=== PATIENT | male | born 1970 | race Hispanic/Latino ===

== ENCOUNTER 2017-03-31 08:39 | Outpatient (CLI) | payer BC ==
--- NOTE | 2017-03-31 10:02 | CT ---
CT OF RIGHT ELBOW PERFORMED WITHOUT CONTRAST ENHANCEMENT: HISTORY: Right elbow pain, unable to straighten arm. FINDINGS: There are marked arthritic changes of the elbow. There is spurring involving the coronoid and olecra non process. There is also arthritic change of the radiocapitellar joint space. There are some prom inent ossified bodies in the olecranon fossa and directly superior to the coronoid process. Some of these appear to show attachment to the bone. There are no signs of any fracture. No lytic or blasti c bony change. IMPRESSION: Marked arthritic changes of the elbow with ossified bodies seen within the joint space. POS: OZZY
== END 2017-03-31 08:40 | disposition home or self-care (01) ==
LOC: CT 08:39
PROVIDERS: ATTEND Orthopaedic Surgery
DX: M25.521 Pain in right elbow (principal); M19.021 Primary osteoarthritis, right elbow

== ENCOUNTER 2017-04-17 09:10 | Outpatient (CLI) | payer BC ==
[2017-04-17 10:27] LABS: Hematocrit 45.4 % (42.0-52.0); Mean Platelet Volume 7.7 fL (7.4-10.4); Red Blood Cell (RBC) Count 4.83 mill/uL (4.70-6.10); White Blood Cell (WBC) Count 4.5 thou/uL (4.8-10.8)
[2017-04-17 10:31] LABS: Bilirubin Negative (Negative); Blood, Urine Negative (Negative); Glucose, Urine (Dipstick) Negative (Negative); Ketone, Urine Negative (Negative); Nitrite Negative (Negative); Protein, Urine (Dipstick) Negative (Neg-Trace); Urobilinogen 0.2 mg/dL (0.2-1.0)
[2017-04-17 10:33] LABS: Bacteria/HPF None Seen HPF (None Seen); Hyaline Casts/LPF 0-3 HYALINE CAST LPF (0-3 Hyaline); RBC/HPF 0-3 HPF (0-3); Squamous Epithelial None Seen HPF (0-3); WBC/HPF None Seen HPF (0-3)
== END 2017-04-17 09:11 | disposition home or self-care (01) ==
LOC: LABBT 09:10
PROVIDERS: ATTEND Orthopaedic Surgery
DX: Z01.812 Encounter for preprocedural laboratory examination (principal); M19.021 Primary osteoarthritis, right elbow
CPT/HCPCS: 81001; 85027

== ENCOUNTER 2017-04-20 05:43 | Day surgery (SDC) | payer BC ==
[2017-04-17 09:47] VITALS: BMI 28.8
[2017-04-20] MEDS ORDERED: CEFAZOLIN/Water 2 GM/20 ML SYRINGE ONE (06:34)
[2017-04-20] MEDS ORDERED: Bupivacaine/Epinephrine 0.25% 30 ML VIAL ONE (06:53)
[2017-04-20] MEDS ORDERED: Fentanyl 100 MCG/2 ML VIAL ONE ×3 (07:15→10:07)
[2017-04-20] MEDS ORDERED: Promethazine HCl 25 MG/ML VIAL IM/IV PRN (10:41)
[2017-04-20] MEDS ORDERED: Non-Formulary Medication 1 EACH PO PRN (10:41)
[2017-04-20] MEDS ORDERED: Ondansetron HCl/PF 4 MG/2 ML Vial IVP PRN (10:41)
[2017-04-20] MEDS ORDERED: HYDROcodone/Acetaminophen 5/325 mg Tablet ONE (11:04)
--- NOTE | 2017-04-20 11:33 | OP ---
DATE OF PROCEDURE: 04/20/2017 PREOPERATIVE DIAGNOES: Right elbow osteoarthritis with loose bodies, decreased range of motion. POSTOPERATIVE DIAGNOSES: Right elbow osteoarthritis with loose bodies, decreased range of motion. PROCEDURE PERFORMED: 1. Anterior capsule release. 2. Removal of loose bodies anterior and posterior compartment. 3. Synovectomy. STAFF: Atilio Cloud M.D. MICROFICHE DUPLICATOR: None. ANESTHESIA: Donohue; GETA with 25 mL of Marcaine with epinephrine intraarticularly. ESTIMATED BLOOD LOSS: Less than 25 mL. TOURNIQUET TIME: 94 minutes. ANTIBIOTICS: Ancef. COMPLICATIONS: None. HISTORY OF PRESENT ILLNESS: Mr. Faustin is a 46-year-old male who presented to me with right elbow pain for several months. He works in an oil field. The pain is severe. He received some relief from his injection. The patient had films showing osteoarthritis with loose bodies noted. CT scan showed loose bodies, both anterior and posterior. I discussed with the patient the risks and benefits of an arthroscopic evaluation with capsule release, manipulation, removal of the loose bodies and synovectomy as needed. The patient understood these risks and benefits and elected to proceed. PROCEDURE IN DETAIL: Timeout was performed designating the patient's right upper extremity as the operative site based on sight, consents and markings. After timeout, the patient's right upper extremity was prepped and draped in sterile fashion. Tourniquet was brought up and left up for a total of 94 minutes. I injected 25 mL of Marcaine 0.25% with epinephrine into the soft spot of the elbow laterally. I then had marked off my medial and lateral epicondyle as my ulnar nerve. I placed a stab incision in the anterior aspect of the intermuscular septum, 2 cm proximal, 1-2 cm anterior to the medial epicondyle and placed my anteromedial portal. I flushed water through and saw it came out my soft spot spinal needle. I then moved to my anterolateral under visualization placed inside out using a spinal needle to visualize and then placed my anterior lateral portal. I used this to begin fraying off the humeral side, placed my shaver up and did a synovectomy removing some of the synovitis, beginning portion of the capsule showed a brachialis muscle. I found a large loose body that was floating around within the joint, which I excised. After I placed a second mid anterior lateral portal just above the radial head, right just above the level of the patient's capitellum, bluntly dissecting down. I then used that for my elevation and visualization of the joint. I debrided and removed the loose body, debrided the capsule. I ensured to stay proximal to the radial head to ensure no potential risk to the posterior interosseous nerve. I started from the medial side and used a shaver and came across the brachialis to do my capsular release. I then switched my vein portal to the proximal anterolateral portal using my medial portal, shaved , saw no further loose bodies, did not feel that I had a good exposure to get any further osteophytes off the coronoid. I debrided and ensured that I had done my complete capsular release. I then moved posteriorly, I made a direct posterior portal and a posterior lateral portal 3 cm from the olecranon tip. I then shaved the bursic, ensured exposure, I stayed away from the medial aspect to stay away from the patient's ulnar nerve. I found a large loose body which I had to piecemealed out and bring out multiple pieces. I then used a bur to bur down the tip of the olecranon and create a hole within the tip of the olecranon fossa. At completion of this, I then washed, closed. I let the tourniquet down after 94 minutes, closed all my tourniquet sites after I had taken final pictures. The patient will follow up with me in 2 weeks. Elbow, wrist, and hand motion, he will take Indocin for about 4 weeks postop, the patient will begin immediate range of motion. He was given hydrocodone for pain relief. SARY
[2017-04-20] MEDS ORDERED: Propofol 200 MG/20 ML VIAL ONE (16:23)
[2017-04-20] MEDS ORDERED: Lidocaine 1% PF 5 ML VIAL ONE (16:23)
[2017-04-20] MEDS ORDERED: Ketorolac Tromethamine 30 MG/ML VIAL ONE (16:23)
[2017-04-20] MEDS ORDERED: Ondansetron HCl/PF 4 MG/2 ML Vial ONE (16:23)
== END 2017-04-20 12:00 | disposition home or self-care (01) ==
LOC: SDC 05:43
PROVIDERS: ATTEND Orthopaedic Surgery
PROC: 0RCL4ZZ Extirpation of Matter from Right Elbow Joint, Percutaneous Endoscopic Approach (ICD-10-PCS; principal; 2017-04-20)
PROC: 0RBL4ZZ Excision of Right Elbow Joint, Percutaneous Endoscopic Approach (ICD-10-PCS; principal; 2017-04-20)
DX: M19.021 Primary osteoarthritis, right elbow (principal); M24.021 Loose body in right elbow; Z79.899 Other long term (current) drug therapy
CPT/HCPCS: 96374; J1885; J2001; J2270; J2405; J2704; J3010